=== PATIENT | female | born 1980 | race Caucasian/White ===

== ENCOUNTER → 2016-11-17 | Outpatient (REF) | payer OTHER | LOC: M LAB REF 12:08 | PROVIDERS: ATTEND Physician Assistant | DX: J02.9 Acute pharyngitis, unspecified (principal) ==

== ENCOUNTER → 2017-01-02 | Outpatient (CLI) | payer OTHER ==
--- NOTE | 2017-01-03 08:24 | REP ---
Chest x-ray: Two views. History: Dyspnea. . Comparison study: September 06, 2016 . Findings: The lungs are well inflated and free of infiltrate. The pleural angles are sharp. The heart size is normal. Pulmonary vasculature is not increased. No significant bony abnormality is seen. Impression: Negative chest x-ray. Signed by Cooper Wu MD 01/03/2017 08:16 A
== END ==
LOC: M ADAMS 13:54
PROVIDERS: ATTEND Family Medicine
DX: R06.00 Dyspnea, unspecified (principal)

== ENCOUNTER → 2017-01-02 | Outpatient (REF) | payer OTHER ==
[2017-01-02 20:44] LABS: BASO % 0.4 % (0.0-1.0); EOS # 0.1 K/mm3 (0.0-0.50); EOS % 1.2 % (0.0-3.0); LARGE UNSTAINED CELL # 0.1 K/mm3 (0.0-0.4); LARGE UNSTAINED CELL % 1.6 % (0.0-4.0); LYMPH # 2.2 K/mm3 (1.5-4.5); LYMPH % 27.7 % (24.0-44.0); MEAN CORPUSCULAR HGB CONC 33.3 g/dl (32.0-36.5); MEAN CORPUSCULAR VOLUME 96.1 fl (80.0-96.0); MONO # 0.5 K/mm3 (0.0-0.8); NEUTROPHILS # 4.7 K/mm3 (1.8-7.7); NEUTROPHILS % 62.1 % (36.0-66.0); PLATELET COUNT, AUTOMATED 366 k/mm3 (150-450); RED CELL DISTRIBUTION WIDTH 12.4 % (11.5-14.5); WHITE BLOOD COUNT 7.6 K/mm3 (4.0-10.0)
== END ==
LOC: M SFHCADAM 13:46
PROVIDERS: ATTEND Family Medicine
DX: R06.00 Dyspnea, unspecified (principal)

== ENCOUNTER → 2017-03-01 | Outpatient (REF) | payer OTHER ==
[~2017-03-01] MED LIST: AMLO5TAB2 PO; INDO50CA PO; ZOLO50TA PO
== END ==
LOC: M LAB REF 12:23
PROVIDERS: ATTEND Physician Assistant Medical
DX: J02.9 Acute pharyngitis, unspecified (principal)

== ENCOUNTER 2017-03-03 08:06 | Emergency (ER) | payer OTHER ==
[~2017-03-03] VITALS: Ht 162.6 cm; Wt 95.3 kg
[2017-03-03] MEDS ORDERED: ZOLO50TA PO (08:31)
[2017-03-03] MEDS ORDERED: AMLO5TAB2 PO (08:31)
[2017-03-03 09:45] LABS: BASO % 0.3 % (0.0-1.0); EOS # 0.1 K/mm3 (0.0-0.50); EOS % 1.3 % (0.0-3.0); LARGE UNSTAINED CELL # 0.1 K/mm3 (0.0-0.4); LARGE UNSTAINED CELL % 1.9 % (0.0-4.0); LYMPH % 30.7 % (24.0-44.0); MEAN CORPUSCULAR HEMOGLOBIN 30.2 pg (27.0-33.0); MEAN CORPUSCULAR HGB CONC 31.6 g/dl (32.0-36.5); MEAN CORPUSCULAR VOLUME 95.7 fl (80.0-96.0); MONO # 0.4 K/mm3 (0.0-0.8); MONO % 6.2 % (0.0-5.0); NEUTROPHILS # 3.7 K/mm3 (1.8-7.7); NEUTROPHILS % 59.6 % (36.0-66.0); PLATELET COUNT, AUTOMATED 308 k/mm3 (150-450); RED CELL DISTRIBUTION WIDTH 12.9 % (11.5-14.5); WHITE BLOOD COUNT 6.1 K/mm3 (4.0-10.0)
[2017-03-03 09:48] LABS: ANION GAP 4 MEQ/L (8-16); BLOOD UREA NITROGEN 14 MG/DL (7-18); CALCIUM LEVEL 8.4 MG/DL (8.5-10.1); CARBON DIOXIDE LEVEL 27 MEQ/L (21-32); CHLORIDE LEVEL 108 MEQ/L (98-107); CREATININE FOR GFR 0.76 MG/DL (0.55-1.02); GLOMERULAR FILTRATION RATE > 60.0 (>60); GLUCOSE, FASTING 84 MG/DL (70-105); POTASSIUM SERUM 4.4 MEQ/L (3.5-5.1); SODIUM LEVEL 139 MEQ/L (136-145)
--- NOTE | 2017-03-03 10:01 | REP ---
Right knee series: Five views. History: Right knee pain and swelling. Findings: Five views of the right knee demonstrate normal bones, joints, and soft tissues. No fracture or subluxation is seen. Impression: Negative right knee series. Signed by Cooper Wu MD 03/03/2017 10:26 A
[2017-03-03 10:26] LABS: ERYTHROCYTE SEDIMENTATION RATE 15 mm/hr (0-20)
[2017-03-03] MEDS ORDERED: INDO50CA PO (10:41)
[2017-03-03 10:52] VITALS: BP 137/96
[2017-03-05 00:06] LABS: Lyme Disease IgG/IgM Antibodie <0.91 ISR (0.00-0.90); Lyme Disease IgM Ab Quantitati <0.80 index (0.00-0.79)
== END 2017-03-03 10:54 | disposition home or self-care (01) ==
LOC: M ED 08:46
DX: M25.461 Effusion, right knee (principal); I10 Essential (primary) hypertension; Z79.899 Other long term (current) drug therapy

== ENCOUNTER → 2019-04-07 | Outpatient (CLI) | payer OTHER ==
[~2019-04-07] MED LIST changes: -AMLO5TAB2 PO; +AMLO5TAB6 PO; -INDO50CA PO; +INDO50CA11 PO
--- NOTE | 2019-04-08 07:30 | REP ---
LUMBOSACRAL SPINE: AP and lateral views of the lumbosacral spine are performed. There is no compression fracture or malalignment. There is normal lumbar lordosis. Minor disc space narrowing is seen at L5-S1 with sclerosis at the facets at that level. The posterior elements are intact. IMPRESSION: Mild degenerative changes L5-S1. Electronically Signed by Godwin Hurtado MD 04/08/2019 08:31 A
== END ==
LOC: M ADAMS 11:47
PROVIDERS: ATTEND Physician Assistant
DX: M54.16 Radiculopathy, lumbar region (principal)

== ENCOUNTER → 2020-01-06 | Outpatient (CLI) | payer MEDICAID ==
[~2020-01-06] MED LIST changes: -INDO50CA11 PO; +INDO50CA91 PO
--- NOTE | 2020-01-06 14:39 | REP ---
PARASTERNAL CHEST WALL ULTRASOUND: HISTORY: Swelling mass or lump in the chest. Question lipoma. Palpable lump noted near the sternum times 2-3 months. SONOGRAPHIC FINDINGS: Scanning in the parasternal soft tissues demonstrates no soft tissue mass, cyst, or tissue distortion. No mass lesion is seen. IMPRESSION: Negative parasternal soft tissue sonography.
== END ==
LOC: M WHC 13:26
PROVIDERS: ATTEND Nurse Practitioner Women's Health
DX: R22.2 Localized swelling, mass and lump, trunk (principal)

== ENCOUNTER → 2020-05-19 | Outpatient (CLI) | payer OTHER ==
[~2020-05-19] MED LIST changes: +AMLO1TAB24 PO; -AMLO5TAB6 PO
[2020-06-15 19:58] LABS: BASO % 0.6 % (0.0-1.0); EOS % 0.4 % (0.0-3.0); HEMATOCRIT 40.6 % (36.0-47.0); HEMOGLOBIN 13.4 g/dl (12.0-15.5); LYMPH # 3.2 10^3/uL (1.5-5.0); LYMPH % 45.3 % (24.0-44.0); MEAN CORPUSCULAR HEMOGLOBIN 31.2 pg (27.0-33.0); MEAN CORPUSCULAR VOLUME 94.4 fl (80.0-96.0); MONO # 0.5 10^3/uL (0.0-0.8); MONO % 7.3 % (0.0-5.0); NEUTROPHILS # 3.2 10^3/uL (1.5-8.5); NEUTROPHILS % 46.3 % (36.0-66.0); PLATELET COUNT, AUTOMATED 376 10^3/uL (150-450)
[2020-06-15 20:08] LABS: INR 0.95; PROTHROMBIN TIME 12.9 SECONDS (11.8-14.0)
--- NOTE | 2020-07-10 07:38 | REP ---
CHEST X-RAY CLINICAL: Shortness of breath and unintentional weight loss. TECHNIQUE: PA and lateral. COMPARISON: 01/02/2017. FINDINGS: Mediastinum and cardiac silhouette normal. Lung tirado clear. No consolidation, effusion, or pneumothorax. Skeletal structures are intact. IMPRESSION: No acute cardiopulmonary process or focal consolidation. MTDD
== END ==
LOC: M LAB 13:41
PROVIDERS: ATTEND Physician Assistant
DX: R63.4 Abnormal weight loss (principal); R06.02 Shortness of breath